=== PATIENT | male | born 1980 | race Caucasian/White ===

== ENCOUNTER 2018-02-12 02:31 | Emergency (ER) | payer OTHER ==
[2018-02-12 02:46] VITALS: BP 127/63; PULSE 130; RESP 18; TEMP 98
--- NOTE | 2018-02-12 03:15 | ED ---
Overdose HPI - General Chief Complaint: Overdose Stated Complaint: Overdose Time Seen by Provider: 02/12/18 02:42 Source: family Mode of arrival: wheelchair Limitations: altered mental status - History of Present Illness Initial Comments: 37 years old male comes to the trauma bay he was not breathing well at all nurse 's notices this is to rate was only 6 bathroom minute the open up his airway brought him to the trauma bay by the time he got to the trauma bay he was awake he was alert and noticed tachycardia heart rate was 128 and wanted to do overdose blood work on him and watch him to make sure he is stable but he refused any intervention at that point his GCS was 15 he said he will want to sign the AMA paper and moderate. He denies any aches no chest pain or shortness of breath no abdominal pain no frequency urgency dysuria - Related Data Previous Rx's Medication Instructions Recorded Bacitracin Oint 1 applic TOPICAL BID applic 07/14/15 Multivitamins, Thera [Multivitamin 1 each PO DAILY@1200 #15 tab 07/14/15 (formulary)] Naproxen 500 mg PO Q12HR #14 tab 07/14/15 Nystatin 100,000Unit/gm Cream 1 applic TOPICAL BID applic 07/14/15 [Mycostatin Cream] Sertraline HCl [Zoloft] 100 mg PO DAILY #15 tab 07/14/15 Sulfamethox-Tmp 800-160Mg [Bactrim 1 each PO BID #7 tab 07/14/15 DS 800-160 mg] Thiamine [Vitamin B-1] 100 mg PO DAILY@1200 #15 tab 07/14/15 Triamcinolone 0.1% Cream [Kenalog] 1 applic TOPICAL BID applic 07/14/15 chlorproMAZINE [Thorazine] 12.5 mg PO DAILY@0800,1200,1600 07/14/15 #20 tab clonazePAM [KlonoPIN] 0.5 mg PO TID@0800,1300,2100 #21 07/14/15 tab Allergies Allergy/AdvReac Type Severity Reaction Status Date / Time Penicillins Allergy Swelling Verified 02/12/18 02:45 Review of Systems ROS Statement: Those systems with pertinent positive or pertinent negative responses have been documented in the HPI. ROS Other: All systems not noted in ROS Statement are negative. Past Medical History Past Medical History: No Reported History, Osteoarthritis (OA) History of Any Multi-Drug Resistant Organisms: None Reported Past Surgical History: No Surgical Hx Reported Past Anesthesia/Blood Transfusion Reactions: No Reported Reaction Past Psychological History: No Psychological Hx Reported Smoking Status: Current every day smoker Past Alcohol Use History: Occasional Past Drug Use History: Heroin General Exam - General Exam Comments Initial Comments: General: The patient is awake and alert, in no distress, and does not appear acutely ill. GCS is 15 Skin: Skin is warm and dry and no rashes or lesions are noted. Eye: Pupils are equal, round and reactive to light, extra-ocular movements are intact; there is normal conjunctiva bilaterally. Ears, nose, mouth and throat: There are moist mucous membranes and no oral lesions. Neck: The neck is supple, there is no tenderness or JVD. Cardiovascular: There is a regular rate and rhythm. No murmur, rub or gallop is appreciated. Respiratory: To auscultation bilateral, no wheezing no rhonchi no distress respiratory gonzalez noticed Gastrointestinal: Soft, non-distended, non-tender abdomen without masses or organomegaly noted. There is no rebound or guarding present. Bowel sounds are unremarkable. Back: There is no tenderness to palpation in the midline. There is no obvious deformity. Musculoskeletal: Normal ROM, no tenderness, There is no pedal edema. There is no calf tenderness or swelling. No cords were appreciated. Neurological: CN II-XII intact, Cranial nerves III through XII are intact. There are no obvious motor or sensory deficits. Coordination appears grossly intact. Speech is normal. Psychiatric: Cooperative, appropriate mood & affect, normal judgment. Limitations: altered mental status Course Vital Signs 02/12/18 02/12/18 02:42 02:44 Temperature 98.0 F Pulse Rate 130 H Respiratory 18 18 Rate Blood Pressure 127/63 O2 Sat by Pulse 97 Oximetry Disposition Clinical Impression: Respiratory abnormalities, Tachycardia Disposition: Left Against Medical Advice Referrals: None,Stated [Primary Care Provider] - 1-2 days
== END 2018-02-12 02:47 | disposition left against medical advice (07) ==
LOC: EC 02:31
DX: R00.0 Tachycardia, unspecified (principal); R06.89 Other abnormalities of breathing; M19.90 Unspecified osteoarthritis, unspecified site; F17.200 Nicotine dependence, unspecified, uncomplicated; Z79.1 Long term (current) use of non-steroidal anti-inflammatories (NSAID); Z79.899 Other long term (current) drug therapy; Z88.0 Allergy status to penicillin
CPT/HCPCS: 99283

== ENCOUNTER → 2022-07-29 | Outpatient (CLI) | payer BC ==
--- NOTE | 2022-07-29 10:20 | US ---
EXAMINATION TYPE: US liver DATE OF EXAM: 07/29/2022 COMPARISON: NONE CLINICAL HISTORY: B18.2 chronic viral hep c. Hep C TECHNIQUE: Multiple sonographic images of the right upper quadrant are obtained. FINDINGS: EXAM MEASUREMENTS: Liver Length: 15 cm Gallbladder Wall: .3 cm CBD: .3 cm Right Kidney: 9.6 x 4.2 x 4.7 cm [employer] NOTES: Pancreas: Tail obscured by overlying bowel gas Liver: wnl Gallbladder: wnl Evidence for sonographic Swain's sign: No CBD: wnl Right Kidney: wnl IMPRESSION: 1. Unremarkable right upper quadrant ultrasound. 2. No discrete mass is identified within the liver.
== END | disposition home or self-care (01) ==
LOC: RADUSWWP 08:51
PROVIDERS: ATTEND Internal Medicine Gastroenterology
DX: B18.2 Chronic viral hepatitis C (principal)
CPT/HCPCS: 76705

== ENCOUNTER → 2022-09-06 | Outpatient (CLI) | payer BC ==
[2022-09-06 16:31] LABS: Hepatitis B Surface Antigen Nonreactive (Nonreactive)
== END | disposition home or self-care (01) ==
LOC: LABWHC1 09:20
PROVIDERS: ATTEND Nurse Practitioner Family
DX: B18.2 Chronic viral hepatitis C (principal)
CPT/HCPCS: 36415; 82105; 86704; 87340